=== PATIENT | male | born 1980 | race Caucasian/White ===

== ENCOUNTER 2021-10-27 13:56 | Emergency (ER) | payer SELFPAY ==
[2021-10-27] MEDS ORDERED: SODIUM CHLORIDE 0.9% 1000 ML IV SOLN IV ONE (14:06)
--- NOTE | 2021-10-27 14:08 | Event Note ---
ED Screening Note Date of service: 10/27/21 Time: 14:05 ED Screening Note: Patient here with cough and shortness of breath Notified by triage nurse patient has heart rate of 148 and hypotension Sepsis protocol ordered Charge nurse IV alerted and states room is being prepared This initial assessment/diagnostic orders/clinical plan/treatment(s) is/are subject to change based on patients health status, clinical progression and re- assessment by fellow clinical providers in the ED. Further treatment and workup at subsequent clinical providers discretion. Patient/guardian urged not to elope from the ED as their condition may be serious if not clinically assessed and managed. Initial orders include: Labs Sepsis work-up
[2021-10-27 14:46] LABS: Hematocrit 41.7 % (35.5-45.6); Hemoglobin 13.7 gm/dl (11.8-15.2); Mean Corpuscular HGB Conc 33 % (32-34); Mean Corpuscular Volume 94 fl (84-94); Platelet Count 105 K/mm3 (140-440); Red Blood Count 4.42 M/mm3 (3.65-5.03); Red Cell Distribution Width 14.7 % (13.2-15.2)
--- NOTE | 2021-10-27 14:58 | XRay Report ---
CHEST 2 VIEWS INDICATION / CLINICAL INFORMATION: cough, SOB, tachy, sepsis. COMPARISON: None available. FINDINGS: SUPPORT DEVICES: None. HEART / MEDIASTINUM: No significant abnormality. LUNGS / PLEURA: No significant pulmonary or pleural abnormality. No pneumothorax. ADDITIONAL FINDINGS: No significant additional findings. IMPRESSION: 1. No acute findings. Signer Name: Clyde Cummings MD Signed: 10/27/2021 2:54 PM Workstation Name: [id number]
--- NOTE | 2021-10-27 14:59 | Emergency Department Report ---
ED General Adult HPI - General Chief complaint: Fever Stated complaint: BODY ACHE, DIZZY FOR 1 WEEK Time Seen by Provider: 10/27/21 14:11 Source: patient Mode of arrival: Ambulatory Limitations: No Limitations - History of Present Illness Initial comments: Patient presents with a 4-day history of abdominal pain. Pain is in the lower abdomen. He has also had some left-sided pain. This is mostly in the flank area. He has had subjective fevers and chills. Has had cough and congestion. He has vomited several times. There is no diarrhea. There is no hematemesis. Patient has not had dysuria or frequency. He was not feeling well. He did have a global headache. He came here for evaluation. Patient states that he has not been exposed to anyone that has been ill that he can recall. There is no history of recent travel or trauma. He has had no chest pain. He states he does ache all over. Severity scale (0 -10): 10 - Related Data Allergies Allergy/AdvReac Type Severity Reaction Status Date / Time No Known Allergies Allergy Verified 10/27/21 16:04 ED Review of Systems ROS: Stated complaint: BODY ACHE, DIZZY FOR 1 WEEK Other details as noted in HPI Comment: All other systems reviewed and negative Constitutional: see HPI Eyes: denies: eye pain ENT: denies: throat pain Respiratory: see HPI Cardiovascular: denies: chest pain Endocrine: denies: unexplained weight loss Gastrointestinal: as per HPI Genitourinary: as per HPI Musculoskeletal: as per HPI Skin: denies: rash Neurological: as per HPI Hematological/Lymphatic: denies: easy bruising ED Past Medical Hx - Past Medical History Hx Hypertension: Yes - Family History Family history: hypertension ED Physical Exam - General Limitations: No Limitations, Other (Pulse ox noted and normal) General appearance: alert, in no apparent distress - Head Head exam: Present: atraumatic, normocephalic - Eye Eye exam: Present: normal appearance, EOMI. Absent: scleral icterus - ENT ENT exam: Present: mucous membranes dry, normal external ear exam - Neck Neck exam: Present: normal inspection. Absent: meningismus - Respiratory Respiratory exam: Present: normal lung sounds bilaterally. Absent: respiratory distress - Cardiovascular Cardiovascular Exam: Present: normal rhythm, tachycardia - GI/Abdominal GI/Abdominal exam: Present: soft, tenderness (Suprapubic). Absent: guarding, rebound - Extremities Exam Extremities exam: Present: normal capillary refill - Back Exam Back exam: Present: CVA tenderness (L). Absent: CVA tenderness (R) - Neurological Exam Neurological exam: Present: alert, oriented X3, CN II-XII intact, normal gait. Absent: motor sensory deficit - Psychiatric Psychiatric exam: Present: normal affect, normal mood - Skin Skin exam: Present: warm, dry ED Course Vital Signs 10/27/21 10/27/21 10/27/21 13:59 14:56 15:00 Temperature 98.5 F Pulse Rate 148 H 119 H 110 H Respiratory 20 35 H 22 Rate Blood Pressure 96/59 Blood Pressure 82/62 [Right] O2 Sat by Pulse 96 98 96 Oximetry 10/27/21 10/27/21 10/27/21 15:16 15:30 15:45 Temperature Pulse Rate 108 H 103 H 103 H Respiratory 32 H 28 H 17 Rate Blood Pressure 93/60 98/62 101/61 Blood Pressure [Right] O2 Sat by Pulse 96 97 95 Oximetry 10/27/21 10/27/21 10/27/21 16:00 16:03 16:16 Temperature 97.8 F Pulse Rate 100 H 97 H Respiratory 29 H 26 H Rate Blood Pressure 84/48 86/45 Blood Pressure [Right] O2 Sat by Pulse 92 95 Oximetry 10/27/21 10/27/21 10/27/21 16:30 16:45 17:00 Temperature Pulse Rate 97 H 106 H 96 H Respiratory 28 H 19 31 H Rate Blood Pressure 86/45 102/61 93/59 Blood Pressure [Right] O2 Sat by Pulse 93 93 94 Oximetry 10/27/21 10/27/21 10/27/21 17:15 17:28 17:30 Temperature Pulse Rate 96 H 94 H Respiratory 29 H 17 27 H Rate Blood Pressure 99/58 93/61 Blood Pressure [Right] O2 Sat by Pulse 94 97 94 Oximetry 10/27/21 10/27/21 10/27/21 17:45 18:00 18:15 Temperature Pulse Rate 94 H 92 H 92 H Respiratory 16 28 H 28 H Rate Blood Pressure 102/63 104/62 102/64 Blood Pressure [Right] O2 Sat by Pulse 94 93 94 Oximetry 10/27/21 18:21 Temperature 98.8 F Pulse Rate Respiratory Rate Blood Pressure Blood Pressure [Right] O2 Sat by Pulse Oximetry - Reevaluation(s) Reevaluation #1: 10/27/21 14:58 IV labs ordered. Old records reviewed. Reevaluation #2: 10/27/21 20:55 Patient was accepted at [facility]. ED Medical Decision Making - Lab Data Result diagrams: 10/27/21 14:34 10/27/21 14:34 Rhythm strip: Sinus tachycardia without ectopy per monitor observe 10 seconds. - Radiology Data Radiology results: report reviewed - Medical Decision Making Patient presents with left leg pain was found to have an infected stent in the kidney. He was treated aggressively with antibiotics. He was given fluids. His soft pressure had improved with IV hydration. Patient's leukocytosis and acute kidney injury are likely related to this. We do not have urology capabilities here so the patient was transferred to [facility]. That is where the stent was placed 5 months ago. Critical Care Time: No Critical care attestation.: If time is entered above; I have spent that time in minutes in the direct care of this critically ill patient, excluding procedure time. ED Disposition Clinical Impression: Lower abdominal pain, Pyelonephritis, ELPIDIO (acute kidney injury), Ureteral stent retained Disposition: 04 [facility]ILITY Is pt being admited?: No Condition: Stable
[2021-10-27 15:22] LABS: Albumin 3.1 g/dL (3.9-5); Calcium 8.9 mg/dL (8.4-10.2)
[2021-10-27 16:04] LABS: Total Cells Counted 100
[2021-10-27 16:05] LABS: Large Platelets Few; Platelet Estimate Consistent w Auto; RBC Morphology Normal
[2021-10-27 16:28] LABS: Bacteria,Urine 2+ /HPF (Negative); Bilirubin,Urine NEG (Negative); Blood,Urine MOD (Negative); Color,Urine Yellow (Yellow); Urobilinogen,Urine < 2.0 mg/dL (<2.0)
[2021-10-27] MEDS ORDERED: cefTRIAXone/NS 1 GM/50 ML 1 GM/50 ML BAG IV ONE (17:11)
[2021-10-27] MEDS ORDERED: SODIUM CHLORIDE 0.9% 1000 ML 1,000 ML IV ONE (17:12)
--- NOTE | 2021-10-27 19:12 | Cat Scan Report ---
CT ABDOMEN AND PELVIS WITHOUT CONTRAST INDICATION / CLINICAL INFORMATION: юлия. TECHNIQUE: Axial CT images were obtained through the abdomen and pelvis without IV contrast. All CT scans at this location are performed using CT dose reduction for ALARA by means of automated exposure control. COMPARISON: None available. FINDINGS: LOWER CHEST: No acute abnormality LIVER: No significant abnormality. GALLBLADDER: No significant abnormality. BILE DUCTS: No significant abnormality. PANCREAS: No significant abnormality. SPLEEN: No significant abnormality. ADRENALS: No significant abnormality. RIGHT KIDNEY / URETER: There is a 3.7 cm cyst in the right kidney which shows a small amount of dural calcification. There is a nonobstructing calyceal stone in the mid right kidney. There is no hydrone phrosis. LEFT KIDNEY / URETER: There is a double-J ureteral stent on the left there is no hydronephrosis. Ther e is some edema around the left kidney and ureter. STOMACH / SMALL BOWEL: No significant abnormality. COLON: No significant abnormality. APPENDIX: No significant abnormality. PERITONEUM: No free fluid. No free air. No fluid collection. LYMPH NODES: No significant adenopathy. AORTA / ARTERIES: No significant abnormality. IVC / VEINS: No significant abnormality. URINARY BLADDER: Distal end of the ureteral stent is well placed within the urinary bladder. REPRODUCTIVE ORGANS: No significant abnormality. ADDITIONAL FINDINGS: None. SKELETAL SYSTEM: No acute abnormality. IMPRESSION: 1. There is a double-J ureteral stent on the left. There is edema around the left kidney and left ure ter. There is no hydronephrosis. 2. There is a nonobstructing calyceal stone in the mid right kidney. There is a cyst in the lower po le the right kidney. Signer Name: Clyde Cummings MD Signed: 10/27/2021 7:07 PM Workstation Name: [id number]
[2021-10-28 01:17] VITALS: BP 128/87
--- NOTE | 2021-10-28 13:26 | Electrocardiograph Report ---
[facility] Test Date: 2021-10-27 Test Time: 14:06:20 Pat Name: KATELYNN COLLINS Department: Room: Gender: M Environmental Intern: PRANEETH : 1980 Requested By: ALL JOHNSON Order Number: [id number] Reading MD: Trisha Lainez Measurements Intervals Royal Rate: 136 P: 43 NC: 140 QRS: 31 QRSD: 100 T: -45 QT: 275 QTc: 415 Interpretive Statements Sinus tachycardia Nonspecific ST and T wave changes No previous ECG available for comparison Electronically Signed On 10-28-2021 13:25:12 EST by Trisha Lainez
== END 2021-10-28 00:40 ==
LOC: EDBD → ED 13:56
DX: N12 Tubulo-interstitial nephritis, not specified as acute or chronic (principal); N17.9 Acute kidney failure, unspecified; T83.192A Other mechanical complication of indwelling ureteral stent, initial encounter; R09.81 Nasal congestion; R51.9 Headache, unspecified; R11.10 Vomiting, unspecified; I10 Essential (primary) hypertension
CPT/HCPCS: 36415; 71046; 74176; 80053; 81001; 82140; 85007; 85025; 87040; 93005; 96361; 96365; 99285; J0696; J7030; Q0162